=== PATIENT | male | born 1980 | race American Indian/Alaskan Native ===

== ENCOUNTER 2016-10-14 17:47 | Emergency (ER) | payer OTHER ==
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
[2016-10-14] MEDS ORDERED: NORCO 5/325 PO ONE (19:51)
[2016-10-14 19:54] VITALS: BP 163/108
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
== END 2016-10-14 20:12 | disposition home or self-care (01) ==
LOC: ED 17:47
DX: S16.1XXA Strain of muscle, fascia and tendon at neck level, initial encounter (principal); S80.02XA Contusion of left knee, initial encounter; I10 Essential (primary) hypertension; V89.2XXA Person injured in unspecified motor-vehicle accident, traffic, initial encounter; Y93.89 Activity, other specified; Y99.9 Unspecified external cause status; Y92.410 Unspecified street and highway as the place of occurrence of the external cause
CPT/HCPCS: 72040

== ENCOUNTER 2021-02-04 10:27 | Emergency (ER) | payer SELFPAY | END 2021-02-04 12:01 | disposition home or self-care (01) | LOC: ED 10:27 ==